=== PATIENT | female | born 1955 | race African-American/Black ===

== ENCOUNTER 2021-11-27 07:48 | Outpatient (CLI) | payer OTHER, SELFPAY ==
--- NOTE | ~2021-11-27 | MM_ITS ---
EXAMINATION: MM screening teo BI w kel HISTORY: Screening mammogram, family history of breast cancer in her sister. TECHNIQUE: Craniocaudal and mediolateral oblique 3-D tomosynthesis images were obtained and synthetic 2-D images were generated. CAD analysis was submitted and interpreted. COMPARISON: No prior mammogram is available for comparison at this institution. BREAST PARENCHYMAL COMPOSITION: There are scattered areas of fibroglandular density. FINDINGS: There is no suspicious mass, calcification, or architectural distortion to suggest malignan cy in either breast. IMPRESSION: 1. No mammographic evidence of malignancy. 2. Recommend routine screening mammography in one year. BI-RADS Category 1: Negative Reviewed, dictated and finalized at location A.
== END 2021-11-27 07:49 | disposition home or self-care (01) ==
LOC: ANHIMG 07:51
DX: Z12.31 Encounter for screening mammogram for malignant neoplasm of breast (principal)
CPT/HCPCS: 77063; 77067

== ENCOUNTER 2023-01-28 13:24 | Outpatient (CLI) | payer MEDICARE, SELFPAY ==
--- NOTE | ~2023-01-28 | MM_ITS ---
EXAMINATION: MM screening teo BI w kel HISTORY: Screening mammogram, family history of breast cancer in her sister. TECHNIQUE: Craniocaudal and mediolateral oblique 3-D tomosynthesis images were obtained and synthetic 2-D images were generated. CAD analysis was submitted and interpreted. COMPARISON: 11/27/2021 BREAST PARENCHYMAL COMPOSITION: There are scattered areas of fibroglandular density. FINDINGS: No suspicious mass, calcification, or architectural distortion are identified in either alise ast to suggest malignancy. There has been no suspicious interval change. IMPRESSION: 1. No mammographic evidence of malignancy. 2. Recommend routine screening mammography in one year. BI-RADS Category 1: Negative Reviewed, dictated and finalized at location A.
== END 2023-01-28 13:25 | disposition home or self-care (01) ==
LOC: ANHIMG 13:27
PROVIDERS: PCP Family Medicine
DX: Z12.31 Encounter for screening mammogram for malignant neoplasm of breast (principal)
CPT/HCPCS: 77063; 77067

== ENCOUNTER 2023-02-11 08:48 | Outpatient (CLI) | payer MEDICARE, SELFPAY ==
--- NOTE | ~2023-02-11 | DEXA_ITS ---
Bone Density Report Name: MANOLO SCHUMACHER Age: 67 Sex: Female Ethnicity: White Date of : 1955 Indication: postmenopausal; screening for osteoporosis; height loss; prior fracture; Referring Provider: HAMZAH AGUIRRE Study: Bone densitometry was performed. Exam Date: February 11, 2023 Accession number: [id number] Bone Density: Region BMD T-score Z-score Classification AP Spine(L1-L4) 1.195 1.3 3.1 Normal Femoral Neck (Left) 0.834 -0.1 1.4 Normal Total Hip (Left) 1.043 0.8 2.1 Normal Femoral Neck (Right) 0.781 -0.6 0.9 Normal Total Hip (Right) 1.010 0.6 1.8 Normal Total Hip Mean 1.027 0.7 2.0 Normal World Health Organization criteria for BMD impression classify patients as: Normal (T-score at or above -1.0), Osteopenia (T-score between -1.0 and -2.5), or Osteoporosis (T-score at or below -2.5). 10-year Fracture Risk: FRAX not reported because: All T-scores for Spine Total, Hip Total, Femoral Neck at or above -1.0 Clinical Information Provided by Patient: Has had a low trauma fracture Has used the following medications: Vitamin D, Calcium Patient maximum height was 68.5 Menopause Age: 50 No regular weight bearing exercise Drinks caffeinated beverages Onset of menses at age 14 Number of children 2 Impression: The patient has normal bone mass. The patient has risk factors, including: previous fracture. Discussion: BONE DENSITY IS ABOVE THE MINIMUM DESIRABLE LEVEL AT ALL SKELETAL SITES TESTED. This patient?s bone mineral density is above the minimum desirable level (T-score -1.0 or better) at all sites measured. The patient should follow a healthful lifestyle (good nutrition with adequate calcium and vitamin D, and appropriate weight-bearing exercise). Follow-Up: Consider repeating this study in 5 years or sooner if there is some new clinical indication. Reported by: CEZAR on 02/11/2023 9:26:00 AM. Reviewed, dictated and finalized at location [facility]
== END 2023-02-11 08:49 | disposition home or self-care (01) ==
PROVIDERS: PCP Family Medicine; Visit Provider Obstetrics & Gynecology Gynecology
DX: Z78.0 Asymptomatic menopausal state (principal)
CPT/HCPCS: 77080

== ENCOUNTER 2024-07-20 15:23 | Outpatient (CLI) | payer MEDICARE, SELFPAY ==
--- NOTE | ~2024-07-20 | MM_ITS ---
EXAMINATION: MM screening teo BI w kle HISTORY: Screening TECHNIQUE: Craniocaudal and mediolateral oblique 3-D tomosynthesis images were obtained and synthetic 2-D images were generated. CAD analysis was submitted and interpreted. COMPARISON: Comparison to multiple prior studies sequentially, with oldest reviewed study dated 11/27. BREAST PARENCHYMAL COMPOSITION: Not dense: There are scattered areas of fibroglandular density. FINDINGS: There is no evidence of suspicious mass, calcification, or architectural distortion to sugg est malignancy in either breast. There has been no suspicious interval change. IMPRESSION: 1. No mammographic evidence of malignancy. 2. Recommend routine screening mammography in one year. BI-RADS Category 1: Negative Reviewed, dictated and finalized at location B. REPAIRER
== END 2024-07-20 15:24 | disposition home or self-care (01) ==
LOC: ANHIMG 15:27
PROVIDERS: PCP Family Medicine; Visit Provider Obstetrics & Gynecology Gynecology
DX: Z12.31 Encounter for screening mammogram for malignant neoplasm of breast (principal)
CPT/HCPCS: 77063; 77067

== ENCOUNTER 2024-07-26 10:43 | Outpatient (CLI) | payer MEDICARE, SELFPAY ==
--- NOTE | ~2024-07-26 | XR_ITS ---
3 VIEWS LUMBAR SPINE Ordering provider: Liz Gar PA-C History: . NON TRAUMA LBP . Comparison: None. FINDINGS: VERTEBRAL BODIES:Minimal anterolisthesis at the level of L4-L5. No visible fracture or subluxation. DISK SPACES: Degenerative disc disease seen at the level of L2-L3, L3-L4 and L4-L5. SOFT TISSUES: Normal. IMPRESSION: No acute osseous abnormality lumbar spine. Anterolisthesis at the level of L4-L5. Multilevel degenerative disc disease. Reviewed, dictated and finalized at location A. L SERVICE MANAGER
== END 2024-07-26 10:44 | disposition home or self-care (01) ==
LOC: ANHIMG 10:45
PROVIDERS: PCP Family Medicine; Visit Provider Student in an Organized Health Care Education/Training Program
DX: M43.16 Spondylolisthesis, lumbar region (principal); M51.360 Other intervertebral disc degeneration, lumbar region with discogenic back pain only; M51.370 Other intervertebral disc degeneration, lumbosacral region with discogenic back pain only
CPT/HCPCS: 72100

== ENCOUNTER 2024-08-10 07:57 | Outpatient (CLI) | payer MEDICARE, SELFPAY ==
--- NOTE | 2024-08-10 13:06 | WPDPFTINT ---
PFT Procedure Performed PFT Procedure Performed Spirometry with Pre/Post Bronchodilator Plethysmography (Lung Vol) Diffusing Cap (DLCO) Flow Vol Loop PFT Interpretation This is a pulmonary function test with pre and post-bronchodilator spirometry, plethysmography and diffusing capacity. The test was performed and results interpreted in accordance with the 2019 and 2005 ATS/ERS Task Force guidelines respectively using the Global Lung Function Initiative-2012 reference equations. Patient demonstrated good effort and cooperation. Reproducibility criteria were met. The quality of the pre bronchodilator spirometry maneuver was Grade A and post bronchodilator spirometry maneuver was Grade A. Findings: Spirometry: The contour the inspiratory and expiratory flow tracing are normal. The pre bronchodilator FVC is 2.35 L, 83% predicted. The pre bronchodilator FEV1 is 1.83 L, 83% predicted. The pre bronchodilator FEV1: FVC ratio 78%. The post bronchodilator FVC is 2.47 L, representing a 5% increase. The post bronchodilator FEV1 is 1.95 L, representing a 7% increase. The post bronchodilator FEV1: FVC ratio 79%. Plethysmography: The total lung capacity is 4.17 L, 86% predicted. The functional residual capacity is 1.82 L, 59% predicted. The residual volume is 1.78 L, 85% predicted. Diffusing capacity: The diffusing capacity unadjusted for hemoglobin and carboxyhemoglobin is 19.9, 90% predicted. The diffusing capacity adjusted for alveolar volume is 4.83, 115% predicted. Impression: The spirometry is normal without evidence of an obstructive abnormality. There is no significant improvement after inhaling a single dose of albuterol. The total lung capacity and residual volume are normal with a decreased functional residual capacity. This is an abnormal but nonspecific lung volume pattern. The diffusing capacity is normal. There are no prior studies for comparison
== END 2024-08-10 07:58 | disposition home or self-care (01) ==
PROVIDERS: PCP Family Medicine; Visit Provider Student in an Organized Health Care Education/Training Program
DX: R06.00 Dyspnea, unspecified (principal)
CPT/HCPCS: 94060; 94726; 94729

== ENCOUNTER 2024-09-21 15:30 | Outpatient (RCR) | payer MEDICARE, SELFPAY ==
--- NOTE | 2024-08-24 16:36 | OPREHPOC ---
Outpatient Therapy Plan of Care This is a Multidisciplinary Plan of Care that may contain components documented by all disciplines (PT, OT, and ST.) PT Problem 1 PT Problem #1 Knowledge Deficit PT Goal 1 Goal / Goal Update *indep with HEP Target Visit 6 PT Goal 2 Goal / Goal Update *pt demonstrate correct body mechanics with simulated lifting a child from the floor Target Visit 6 PT Problem 2 PT Problem #2 Pain PT Goal 1 Goal / Goal Update * report pain rating at worst of 38% limitation in activity level Target Visit 6 PT Goal 2 Goal / Goal Update * pt report able to stand/activity with cooking a meal for 30 minutes before sitting down Target Visit 6 PT Problem 3 PT Problem #3 Impaired Flexibility PT Goal 1 Goal / Goal Update *improve flexibility of hips, to improve lumbar positioning prone knee flexion bilateral 110' Target Visit 6 PT Problem 4 PT Problem #4 Impaired Strength PT Goal 1 Goal / Goal Update * increase strength of trunk and hips, to improve support to lumbar spine pt perform 20 reps of mat and standing strengthening exercises R and L Target Visit 6
--- NOTE | 2024-08-24 16:37 | PCPTNOTE ---
pt was 15 minutes late for eval appt.
--- NOTE | 2024-08-24 16:38 | PTOPEVAL1 ---
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; can do things, but slower and have to stop due to pain; have to take sitting breaks during cooking; Reported Pain Level Pain Score 4: Self Report Additional Pain Score Comments pain range in the past week 2- 05/24; severe ache- center of low ache sometimes have pain in her legs but not feel related to her back, aches in feet and below knees , some pain lateral thighs; decrease pain: lean trunk forward with standing, tylenol PRN increase pain: standing upright; standing/walking with kitchen meal prep 15-20 min then have to sit down; once get comfortable, with back braced and supported, can sleep OK not use heat- instruct on PRN use of heating pad 10-15min; Assessment PT Clinical Summary Stephy has the diagnosis of back pain, spondylolisthesis. She reports gradual increase in pain, with decreased standing and activity tolerance with cooking meals. 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 Self assessment with Oswestry rating of 48% limitation in activity level. With the evaluation: standing trunk extension increases her pain; decreased flexibility of anterior hip/quads and piriformis bilateral, with gross trunk and hip strength of 4-/5. Skilled PT services are indicated for modalities to decrease pain, therapeutic exercises to increase flexibility and strength, to improve position of trunk/spine with education for HEP and posture/body mechanics with lifting. Plan of Care Interventions Electrical Stimulation,Hot Pack/Cold Pack,Manual Therapy,Patient/Caregiver Education,Therapeutic Activities,Therapeutic Exercise,Ultrasound,Other Other Interventions taping PT Services Indicated Yes Treatment Frequency and 1-2x/wk for 6 visits Duration These treatments will address the objective and functional deficits as defined above. The patient will be advanced safely and appropriately in order for the patient to progress towards his/her prior level of function. Additional exercises will be introduced and as well as a comprehensive home exercise program upon discharge, if needed, ?to ensure carryover of functional gains achieved in the clinic. This treatment plan has been reviewed and agreement upon by the patient.
--- NOTE | 2024-09-21 16:18 | PTOPDC ---
Assessment and note entered by Juani Dupont, PT Assessment Status Discharge ICD-10 Condition Codes (PT) Pain in low back M54.50 Other ICD-10 Condition Codes ( M43.10 spondylolisthesis PT) Onset past year Subjective Information feel like doing OK; have been doing the exercises at home and trying to be better with picking up the kids from the floor; Reported Pain Level Pain Score Self Report Additional Pain Score Comments pain range in the past week 0-3/10; increase pain standing too long and bending forward decrease pain: lean forward on counter top to take pressure off back standing/walking tolerance 5-10 minutes, then have to sit down or lean over counter Assessment PT Clinical Summary Stephy has received 6 PT sessions. Compared to the initial evaluation: pain from 2-9/ 10 to 0-3/10; self assessment Oswestry rating from 48% to % limitation in activity level; reported standing/activity tolerance from 15 minutes to 5-10 minutes; increase strength of trunk and hips with mat and standing exercises; correct lifting with bilateral UE from floor- simulate lifting child; increase flexibility of anterior hip/quads with prone knee flexion from 95' bilateral to R 110'/ L 100'; education for HEP and posture, body mechanics. The goals were partially met. Discharge PT. She is to continue with her HEP and monitor back posture and lifting. Plan of Care PT Services Indicated No
--- NOTE | 2024-09-21 16:22 | PCPTNOTE ---
pt was 20 minutes late for today's reevaluation appt--had the wrong time.
== END 2024-09-22 11:35 | disposition home or self-care (01) ==
LOC: ANHPT 15:30
PROVIDERS: PCP Family Medicine; Visit Provider Student in an Organized Health Care Education/Training Program
DX: M43.10 Spondylolisthesis, site unspecified (principal); M54.50 Low back pain, unspecified
CPT/HCPCS: 97110; 97140; 97161; 97530

== ENCOUNTER 2025-06-01 14:25 | Outpatient (CLI) | payer MEDICARE, SELFPAY ==
--- NOTE | ~2025-06-01 | XR_ITS ---
EXAMINATION: XR knee RT 3V, 06/01/2025 14:40 CDT HISTORY: M25.561 - Pain in right knee, CHRONIC COMPARISON: No comparisons available. Findings: No acute fracture or malalignment. Moderate to severe tricompartmental degenerative changes, small effusion Soft tissues unremarkable. Impression: No acute fracture or malalignment. Reviewed, dictated and finalized at location A. Impression: No acute fracture or malalignment.
--- NOTE | ~2025-06-01 | XR_ITS ---
EXAMINATION: XR knee LT 3V, 06/01/2025 14:40 CDT HISTORY: M25.561 - Pain in right knee, CHRONIC COMPARISON: No comparisons available. Findings: No acute fracture or malalignment. Moderate to severe tricompartmental degenerative changes Soft tissues unremarkable. Impression: No acute fracture or malalignment. Reviewed, dictated and finalized at location A. Impression: No acute fracture or malalignment.
--- OUTSIDE RECORDS SUMMARY | 2025-06-01 14:34 | XMS_ITS | Encounter Summary ---
Author Organization [facility] Address 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
--- OUTSIDE RECORDS SUMMARY | 2025-06-01 14:34 | XMS_ITS | Encounter Summary ---
Author Organization [facility] Address 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
--- OUTSIDE RECORDS SUMMARY | 2025-06-01 14:34 | XMS_ITS | Encounter Summary ---
Author Organization [facility] Address 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
--- OUTSIDE RECORDS SUMMARY | 2025-06-01 14:34 | XMS_ITS | Clinical Summary ---
Author Organization [facility] Address [address] [place] [address] Phone Care Team Providers Care Railroad Crane Operator Name Role Phone Doc Rodriguez MD Primary Care Provider [phone] Allergies Active Allergy Reactions Criticality Noted Date Comments Sulfa (Sulfonamide Antibiotics) Unknown 02/13 Medications CLONIDINE HCL (CLONIDINE ORAL) Take by mouth. Active apixaban (ELIQUIS ORAL) Activ e verapamiL (CALAN) 120 mg tablet Take 120 mg by mouth daily. Active flecainide (TAMBOCOR) 50 mg Tablet Take 50 mg by mouth daily. 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 WORKER Gender Identity Not on file Sexual Orientation Not on file Occupation Industry Job Start Date Job End Date Not on file Not on file Not on file Not on file Last Filed Vital Signs Vital Sign Reading Time Taken Comments Blood Pressure 122/78 04/26/2020 12:39 PM CDT Pulse 64 04/14/2017 6:00 PM CDT Temperature 36.1 C (97 F) 04/14/2017 4:20 PM CDT Respiratory Rate 18 04/14/2017 4:20 PM CDT Oxygen Saturation 97% 04/14/2017 6:00 PM CDT Inhaled Oxygen Concentration - - Weight 135.2 kg (298 lb) 04/26/2020 12:39 PM CDT Height 172.7 cm (5' 8) 04/26/2020 12:39 PM CDT Body Mass Index 45.31 04/26/2020 12:39 PM CDT Plan of Treatment Health Maintenance Due Date Last Done Comments DTAP/TDAP/TD VACCINES (1 - Tdap) 1976 FIT-DNA Q 3 years 2002 Flex Sig/CT Colonography Q 5 years 2002 PNEUMOCOCCAL VACCINE 50+ YEA RS (1 of 1 - PCV) 12/23/2007 ZOSTER VACCINE (1 of 2) 12/23/2007 OSTEOPOROSIS SCREENING 07/02/2013 07/02/2011 FIT/FOBT Q 1 year 03/09/2015 03/09/2014 COLORECTAL SCREENING 03/24/2017 03/24/2012, 03/24/2012, 08/18/2006 Colorectal Cancer Screening 03/24/2017 BREAST CANCER SCREENING 11/05/2021 11/05/19 21, 08/19/2019, 07/20/2018, Additional history exists INFLUENZA VACCINE (#1) 2025 07/03/2020 RSV VACCINE (60+ or ) (1 - 1-dose 75+ series) 2032 Procedures Procedure Name Priority Date/Time Associated Diagnosis Comments MAMMO 3D DERIK SCREEN BILAT W OR WO CAD Routine 11/05/2020 7:46 AM CONDITIONING ROOM WORKER Breast cancer screening by mammogram POC OCCULT BLOOD, IMMUNO, QUAL, STOOL Routine 03/09/2014 2:51 PM CDT Screening for malignant neoplasm of the rectum ENDOSCOPY, COLON, SCREENING Routine 08/18/2006 from Last 3 Months or Most Recently Relevant to Health Maintenance Results * MAMMO SCRN BILAT 3D DERIK W OR WO CAD (11/05/2020 7:46 AM CONDITIONING ROOM WORKER) Anatomical Region Laterality Modality Breast Bilateral Mammography 11/05/2020 7:47 AM CONDITIONING ROOM WORKER Impressions 11/05/2020 12:32 PM CONDITIONING ROOM WORKER IMPRESSION: 1. No concerning findings. OVERALL FINAL ASSESSMENT: BI-RADS CATEGORY 1 - Negative. RECOMMENDATIONS: 1. Recommend annual mammography. Narrative 11/05/2020 12:32 PM CONDITIONING ROOM WORKER BILATERAL SCREENING DIGITAL MAMMOGRAM WITH 3D TOMOSYNTHESIS AND CAD DATE: 11/05/2020 7:46 AM DICTATION LOCATION: [facility] HISTORY: Routine yearly screening exam. TECHNIQUE: Low-dose full-field digital breast tomosynthesis examination was performed of both breasts with 2D and 3D acquisitions. CAD was utilized. COMPARISON: Studies dating back to 06/08/2015. BREAST COMPOSITION: Scattered fibroglandular densities. FINDINGS: No concerning dominant masses, suspicious calcifications, parenchymal asymmetries or areas of architectural distortion are identified in either breast. Procedure Note Gregor Macdonald MD - 11/05/2020 BILATERAL SCREENING DIGITAL MAMMOGRAM WITH 3D TOMOSYNTHESIS AND CAD DATE: 11/05/2020 7:46 AM DICTATION LOCATION: [facility] HISTORY: Routine yearly screening exam. TECHNIQUE: Low-dose full-field digital breast tomosynthesis examination was performed of both breasts with 2D and 3D acquisitions. CAD was utilized. COMPARISON: Studies dating back to 06/08/2015. BREAST COMPOSITION: Scattered fibroglandular densities. FINDINGS: No concerning dominant masses, suspicious calcifications, parenchymal asymmetries or areas of architectural distortion are identified in either breast. IMPRESSION: 1. No concerning findings. OVERALL FINAL ASSESSMENT: BI-RADS CATEGORY 1 - Negative. RECOMMENDATIONS: 1. Recommend annual mammography. Nancy Yun DO MAMMO ORDERABLES Final Result * POC OCCULT BLOOD, IMMUNO, QUAL, STOOL (03/09/2014 2:51 PM CDT) OCCULT BLOOD, IMMUNOASSAY STOOL1 POC Negative [facility] OCCULT BLOOD, IMMUNOASSAY STOOL2 POC [facility] OCCULT BLOOD, IMMUNOASSAY STOOL3 POC [facility] Stool specimen (specimen) 03/09/2014 2:51 PM CDT Netta Currie MD POINT OF CARE TESTING Final Result [facility] * ENDOSCOPY, COLON, SCREENING (08/18/2006) us Doc Baez MD GI PROCEDURE ORDERABLES Edited [facility] from Last 3 Months or Most Recently Relevant to Health Maintenance Insurance [facility] [employer] PPO [id number] Advance Directives For more information, please contact: [phone] * Full Code (Latest Code Status on File) Date Activated Date Inactivated Comments 03/24/2012 8:22 AM 03/24/2012 12:06 PM Care Teams Railroad Crane Operator Relationship Specialty Start Date End Date Doc Rodriguez MD PCP - General Family Practice 02/16/17
--- OUTSIDE RECORDS SUMMARY | 2025-06-01 14:34 | XMS_ITS | Encounter Summary ---
Author Organization [facility] Address 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
--- OUTSIDE RECORDS SUMMARY | 2025-06-01 14:34 | XMS_ITS | Encounter Summary ---
Author Organization [facility] Address [address] [place] [address] Care Team Providers Care Brim Cutter Name Role Phone Doc Rodriguez MD Primary Care Provider [phone] Encounter Details Date Type Department Care Team (Late st Contact Info) Description 02/11/2000 [facility]patient [facility] Aditya Vera, DO [address] [place] [address] Social History Tobacco Use Types Packs/Day Years Used Date Smoking Tobacco: Never Assessed Comments Unknown Sex and Gender Information Value Date Recorded Sex Assigned at Not on file Legal Sex Female 5:16 AM GENERAL ACTIVITIES THERAPIST Gender Identity Not on file Sexual Orientation Not on file documented as of this encounter Plan of Treatment Not on file documented as of this encounter Visit Diagnoses Not on filedocumented in this encounter Care Teams Brim Cutter Relationship Specialty Start Date End Date Doc Rodriguez MD PCP - General Family Practice 02/16/17 documented as of this encounter
--- OUTSIDE RECORDS SUMMARY | 2025-06-01 14:34 | XMS_ITS | Encounter Summary ---
Author Organization [employer] Address [address] [place] [address] Care Team Providers Care Teacher Cclc Name Role Phone Doc Rodriguez MD Primary Care Provider [phone] Encounter Details Date Type Department Care Team (Late st Contact Info) Description 01/24/2000 Outpatient Historical [facility] Aditya Vera, DO [address] [place] [address] Social History Tobacco Use Types Packs/Day Years Used Date Smoking Tobacco: Never Assessed Comments Unknown Sex and Gender Information Value Date Recorded Sex Assigned at Not on file Legal Sex Female 5:16 AM REFERENCE SERVICES HEAD Gender Identity Not on file Sexual Orientation Not on file documented as of this encounter Plan of Treatment Not on file documented as of this encounter Visit Diagnoses Not on filedocumented in this encounter Care Teams Teacher Cclc Relationship Specialty Start Date End Date Doc Rodriguez MD PCP - General Family Practice 02/16/17 documented as of this encounter
--- OUTSIDE RECORDS SUMMARY | 2025-06-01 14:34 | XMS_ITS | Encounter Summary ---
Author Organization [employer] Address [address] [place] [address] Care Team Providers Care Line Assembly Utility Worker Name Role Phone Doc Rodriguez MD Primary Care Provider [phone] Encounter Details Date Type Department Care Team (Late st Contact Info) Description 08/01/1999 Outpatient Historical [facility] Aditya Vera, DO [address] [place] [address] Social History Tobacco Use Types Packs/Day Years Used Date Smoking Tobacco: Never Assessed Comments Unknown Sex and Gender Information Value Date Recorded Sex Assigned at Not on file Legal Sex Female 5:16 AM PORTFOLIO ASSISTANT Gender Identity Not on file Sexual Orientation Not on file documented as of this encounter Plan of Treatment Not on file documented as of this encounter Visit Diagnoses Not on filedocumented in this encounter Care Teams Line Assembly Utility Worker Relationship Specialty Start Date End Date Doc Rodriguez MD PCP - General Family Practice 02/16/17 documented as of this encounter
--- OUTSIDE RECORDS SUMMARY | 2025-06-01 14:35 | XMS_ITS | Encounter Summary ---
Author Organization [facility] Address [address] [place] [address] Care Team Providers Care Sleeve Setter Name Role Phone Doc Rodriguez MD Primary Care Provider [phone] Encounter Details Date Type Department Care Team (Latest Contact Info) Description 08/25/2005 Outpatient Historical HIS [facility] DM Currie, Netta Gramajo MD [address] [address] SCREENING MAMM-MAILG NEOPL NEC (Primary Dx) Social History Tobacco Use Types Packs/Day Years Used Date Smoking Tobacco: Never Assessed Comments Unknown Sex and Gender Information Value Date Recorded Sex Assigned at Not on file Legal Sex Female 5:16 AM SCREEN CLEANER Gender Identity Not on file Sexual Orientation Not on file documented as of this encounter Plan of Treatment Not on file documented as of this encounter Visit Diagnoses Diagnosis Other screening mammogram- Primary documented in this encounter Care Teams Sleeve Setter Relationship Specialty Start Date End Date Doc Rodriguez MD PCP - General Family Practice 02/16/17 documented as of this encounter
--- OUTSIDE RECORDS SUMMARY | 2025-06-01 14:35 | XMS_ITS | Encounter Summary ---
Author Organization [employer] Address [address] [place] [address] Care Team Providers Care Software Test Engineer Name Role Phone Doc Rodriguez MD Primary Care Provider [phone] Encounter Details Date Type Department Care Team (Late st Contact Info) Description 01/03/2003 Outpatient Historical Division of Neurology [address] [address] Jatinder Edwards MD [address] [place] [address] Social History Tobacco Use Types Packs/Day Years Used Date Smoking Tobacco: Never Assessed Comments Unknown Sex and Gender Information Value Date Recorded Sex Assigned at Not on file Legal Sex Female 5:16 AM DOOR PERSON Gender Identity Not on file Sexual Orientation Not on file documented as of this encounter Plan of Treatment Not on file documented as of this encounter Visit Diagnoses Not on filedocumented in this encounter Care Teams Software Test Engineer Relationship Specialty Start Date End Date Doc Rodriguez MD PCP - General Family Practice 02/16/17 documented as of this encounter
--- OUTSIDE RECORDS SUMMARY | 2025-06-01 14:35 | XMS_ITS | Encounter Summary ---
Author Organization [facility] Address [address] [place] [address] Care Team Providers Care Vegetable Tester Name Role Phone Doc Rodriguez MD Primary Care Provider [phone] Encounter Details Date Type Department Care Team (Latest Contact Info) Description 06/04/2004 Outpatient Historical HIS [facility] DM Currie, Netta Gramajo MD [address] [address] SCREENING MAMM-MAILG NEOPL-OTHER (Primary Dx) Social History Tobacco Use Types Packs/Day Years Used Date Smoking Tobacco: Never Assessed Comments Unknown Sex and Gender Information Value Date Recorded Sex Assigned at Not on file Legal Sex Female 5:16 AM BUMPER OPERATOR Gender Identity Not on file Sexual Orientation Not on file documented as of this encounter Plan of Treatment Not on file documented as of this encounter Visit Diagnoses Diagnosis Other screening mammogram- Primary documented in this encounter Care Teams Vegetable Tester Relationship Specialty Start Date End Date Doc Rodriguez MD PCP - General Family Practice 02/16/17 documented as of this encounter
--- OUTSIDE RECORDS SUMMARY | 2025-06-01 14:35 | XMS_ITS | Clinical Summary ---
Author Organization [facility] Address [address] [place] [address] Phone Care Team Providers Care Pick Pulling Machine Tender Name Role Phone Julia Solano MD Primary Care Provider [phone] Allergies Active Allergy Reactions Criticality Noted Date Comments Sulfa (Sulfonamide Antibiotics) Swelling,Unknown Medium 03/11/2012 Medications Eliquis 5 mg tablet Take 1 tablet (5 mg total) by mouth 2 (two) times a day Active cloNIDine (CATAPRES) 0.1 mg tablet Take 1 tablet (0.1 mg total) by mouth 2 (two) times a day 06/24/2017 Active flecainide (TAMBOCOR) 100 mg tablet Take 1 tablet (100 mg total) by mouth 2 (two) times a day 06/24/2017 Active flecainide (TAMBOCOR) 50 mg tablet Take 1 tablet (50 mg total) by mouth 2 (two) times a day 02/14/2019 Active flecainide (TAMBOCOR) 50 mg tablet Take 1 tablet (50 mg total) by mouth 2 (two) times a day Active losartan (COZAAR) 100 mg tablet Take 1 tablet (100 mg total) by mouth daily 06/24/[address] (PROTONIX) 40 mg EC tablet Take 1 tablet (40 mg total) by mouth daily 09/27/2023 Active potassium chloride ER 10 mEq CR tablet Take 1 tablet/capsu le (10 mEq total) by mouth 2 (two) times a day 06/24/2017 Active spironolactone (ALDACTONE) 25 mg tablet Take 1 tablet (25 mg total) by mouth daily 08/16/2023 Active verapamiL (CALAN) 120 mg tablet Take 1 tablet (120 mg total) by mouth 2 (two) times a day 06/24/2017 Active terazosin (HYTRIN) 5 mg capsule Take 1 capsule (5 mg total) by mouth 2 (two) times a day Active Active Problems Problem Noted Date Diagnosed Date Gastroesophageal reflux dise ase with esophagitis without hemorrhage 11/04/2023 Iron deficiency anemia 11/04/2023 PUD (peptic ulcer disease) 11/04/2023 Paroxysmal atrial fibrillation 06/24/2017 Snoring 06/24/2017 Supraventricular tachycardia 06/20/2017 Overview (11/04/2023): Documented narrow complex short RP Essential (primary) hypertension 06/10/2017 Heart disease 06/10/2017 Hyperlipidemia 06/10/2017 Obesity 06/10/2017 Other specified disorders of arteries and arteri oles 06/10/2017 Overview (11/04/2023): Normal coronary arteries,normal EF at 65% Social History Tobacco Use Types Packs/Day Years Used Date Smoking Tobacco: Never Assessed Comments Unknown Sex and Gender Information Value Date Recorded Sex Assigned at Not on file Legal Sex Female 2:37 PM CDT Gender Identity Not on file Sexual Orientation Not on file Obstetrics History Last Filed Vital Signs Vital Sign Reading Time Taken Comments Blood Pressure 100/70 11/04/2023 8:08 AM FUR FINISHER SEAMSTRESS Pulse 81 11/04/2023 8:08 AM FUR FINISHER SEAMSTRESS Temperature 36.8 C (98.3 F) 11/04/2023 8:08 AM FUR FINISHER SEAMSTRESS Respiratory Rate 20 11/04/2023 8:08 AM FUR FINISHER SEAMSTRESS Oxygen Saturation 97% 11/04/2023 8:08 AM FUR FINISHER SEAMSTRESS Inhaled Oxygen Concentration - - Weight 133.4 kg (294 lb) 11/04/2023 8:08 AM FUR FINISHER SEAMSTRESS Height 170.2 cm (5' 7) 11/04/2023 8:08 AM FUR FINISHER SEAMSTRESS Body Mass Index 46.05 11/04/2023 8:08 AM FUR FINISHER SEAMSTRESS Plan of Treatment Health Maintenance Due Date Last Done Comments Colon Cancer Screening-Colonoscopy 1955 Depression Screening 1955 Fall Risk Assessment 1955 Hepatitis C Screening 1955 Osteoporosis Screening-Bone Density Scan 1955 DTaP/Tdap/Td Vaccine (1 - Tdap) 1968 Hepatitis B Screening 12/23/1975 Pneumococcal vaccine 65+ (1 of 1 - PCV) 12/23/2007 Zoster Vaccine (1 of 2) 12/23/2007 Breast Cancer Screening-Mammogram 11/05/2021 11/05/2020, 11/05/2020, 08/19/2019, Additional history exists Well Visit 65+ 2022 Covid-19 Vaccine (5 - 2024-2 6 season) 2025 07/07/2022, 08/01/2021, 12/12/2020, Additional history exists Influenza Vaccine (#1) 2025 , 08/01/2021, 07/03/2020 Insurance MEDICARE [facility] Address: [facility] [address] [place] [address] [facility] Care Teams Pick Pulling Machine Tender Relationship Specialty Start Date End Date Julia Solano MD PCP - General Family Medicine 10/31/23
--- OUTSIDE RECORDS SUMMARY | 2025-06-01 14:35 | XMS_ITS | Encounter Summary ---
Author Organization [employer] Address [address] [place] [address] Care Team Providers Care Relief Driller Name Role Phone Doc Rodriguez MD Primary Care Provider [phone] Encounter Details Date Type Department Care Team (Late st Contact Info) Description 11/10/2005 Outpatient Historical [facility] Netta Currie MD [address] [place] [address] UTERINE LEIOMYOMA NOS (Primary Dx) Social History Tobacco Use Types Packs/Day Years Used Date Smoking Tobacco: Never Assessed Comments Unknown Sex and Gender Information Value Date Recorded Sex Assigned at Not on file Legal Sex Female 5:16 AM AVIATION BOATSWAIN'S MATE Gender Identity Not on file Sexual Orientation Not on file documented as of this encounter Plan of Treatment Not on file documented as of this encounter Visit Diagnoses Diagnosis Leiomyoma of uterus, unspecified- Primary documented in this encounter Care Teams Relief Driller Relationship Specialty Start Date End Date Doc Rodriguez MD PCP - General Family Practice 02/16/17 documented as of this encounter
--- OUTSIDE RECORDS SUMMARY | 2025-06-01 14:35 | XMS_ITS | Encounter Summary ---
Author Organization [employer] Address [address] [place] [address] Care Team Providers Care Analog Ic Design Architect Name Role Phone Doc Rodriguez MD Primary Care Provider [phone] Encounter Details Date Type Department Care Team (Late st Contact Info) Description 09/10/2000 Outpatient Historical [facility] Aditya Vera, DO [address] [place] [address] Social History Tobacco Use Types Packs/Day Years Used Date Smoking Tobacco: Never Assessed Comments Unknown Sex and Gender Information Value Date Recorded Sex Assigned at Not on file Legal Sex Female 5:16 AM WIRE COATING OPERATOR METAL Gender Identity Not on file Sexual Orientation Not on file documented as of this encounter Plan of Treatment Not on file documented as of this encounter Visit Diagnoses Not on filedocumented in this encounter Care Teams Analog Ic Design Architect Relationship Specialty Start Date End Date Doc Rodriguez MD PCP - General Family Practice 02/16/17 documented as of this encounter
--- OUTSIDE RECORDS SUMMARY | 2025-06-01 14:35 | XMS_ITS | Clinical Summary ---
Author Organization [facility] Address [address] [place] [address] Care Team Providers Care Education Counselor Name Role Phone Doc Rodriguez MD Primary Care Provider [phone] Source Comments [facility],non-owned Affiliates and Associated Physician Practices is amultiple site organization consisting of ambulatory clinics and hospital sitesin [place], [place], [place] and [place]. This disclosure is being madepursuant to the Care Everywhere program and may not contain all information available regarding this patient. Last updated 18.[facility] Allergies Active Allergy Reactions Criticality Noted Date Comments Sulfa Drugs Swelling Low 06/24/2017 Medications * Be aware that medications may not be up to date on this document. Alwaysverify current medications with the patient. potassium chloride (KLOR-CON M) 10 MEQ tablet Take 10 mEq by mouth BID. 06/24/2017 Active verapamil (ISOPTIN) 120 MG tablet Take 120 mg by mouth BID. 06/24/2017 Active cloNIDine (CATAPRES) 0.1 MG tablet Take 0.1 mg by mouth BID. 06/24/2017 Active losartan (COZAAR) 100 MG tablet Take 100 mg by mouth DAILY. 06/24/2017 Active flecainide (TAMBOCOR) 100 MG tablet Take 100 mg by mouth BID. 60 tablet 11 06/24/2017 Active aspirin (ASPIRIN) 81 MG tablet Take 81 mg by mouth DAILY. 06/24/2017 Active apixaban (ELIQUIS) 5 MG tabletIndications :Paroxysmal atrial fibrillation (HCC) Take 1 tablet by mouth 2 times daily 60 tablet 11 07/24/2018 Active Active Problems Problem Noted Date Diagnosed Date Snoring 06/24/2017 Paroxysmal atrial fibrillation 06/24/2017 Supraventricular tachycardia 06/20/2017 Overview (12/14/2017): Documented narrow complex short RP Other specified disorders of arteries and arteri oles 06/10/2017 Overview (12/14/2017): Normal coronary arteries,normal EF at 65% Obesity 06/10/2017 Essential (primary) hypertension 06/10/2017 Heart disease 06/10/2017 Hyperlipidemia 06/10/2017 Social History Tobacco Use Types Packs/Day Years Used Date Smoking Tobacco: Never Smokeless Tobacco: Never Alcohol Use Standard Drinks/Week Comments No 0 (1 standard drink = 0.6 oz pur e alcohol) Comments Unknown Sex and Gender Information Value Date Recorded Sex Assigned at Not on file Legal Sex Female 5:20 PM LIGHT RAIL OPERATOR Gender Identity Not on file Sexual Orientation Not on file Last Filed Vital Signs Vital Sign Reading Time Taken Comments Blood Pressure 132/88 06/24/2017 11:19 AM CDT Pulse 90 06/24/2017 11:19 AM CDT Temperature - - Respiratory Rate - - Oxygen Saturation 97% 06/24/2017 11:19 AM CDT Inhaled Oxygen Concentration - - Weight 122.5 kg (270 lb) 06/24/2017 11:19 AM CDT Height 172.7 cm (5' 8) 06/24/2017 11:19 AM CDT Body Mass Index 41.05 06/24/2017 11:19 AM CDT Plan of Treatment Health Maintenance Due Date Last Done Comments BONE DENSITY TESTING 1955 COLOGUARD (AGES 45-75) - COL ON CA SCREENING 1957 COLON MONITORING 1957 COLONOSCOPY - COLON CA SCREENING 1957 CT COLONOGRAPHY - COLON CA SCREENING 1955 Colorectal Cancer Screening 1957 FIT - COLON CA SCREENING 1957 FLEX SIG - COLON CA SCREENING 1957 LIPID TESTING 1957 MAMMOGRAM 1957 HEPATITIS C SCREENING 12/18/1975 DTAP/TDAP/TD VACCINES (1 - Tdap) 1976 PNEUMOCOCCAL VACCINE 50+ (1 of 1 - PCV) 12/23/2007 ZOSTER VACCINE (1 of 2) 12/23/2007 Respiratory Syncytial Virus (RSV) Vaccine Pt: or over 60 yrs (1 - Risk 60-74 years 1-dose series) 2017 DEPRESSION SCREENING 09/14/2024 COVID-19 VACCINE ( - 2023-2 5 season) 2025 INFLUENZA VACCINE (#1) 2025 HEPATITIS B VACCINE Aged Out No longe r eligible based on patient's age to complete this topic HIB VACCINE Aged Out No longer eligi ble based on patient's age to complete this topic HPV VACCINE Aged Out No longer eligi ble based on patient's age to complete this topic MENINGOCOCCAL (Group B) VACC INE SHARED DECISION-MAKING Aged Out No longer eligibl e based on patient's age to complete this topic MENINGOCOCCAL GROUPS A/C/Y/W VACCINE Aged Out No longer eligible b ased on patient's age to complete this topic Care Teams Education Counselor Relationship Specialty Start Date End Date Doc Rodriguez MD [address] [place] [address] PCP - General 06/09/17
--- OUTSIDE RECORDS SUMMARY | 2025-06-01 14:35 | XMS_ITS | Encounter Summary ---
Author Organization [facility] Address [address] [place] [address] Care Team Providers Care Music Writer Name Role Phone Doc Rodriguez MD Primary Care Provider [phone] Encounter Details Date Type Department Care Team (Late st Contact Info) Description 02/02/2009 Outpatient Historical HIS [facility] DM Sotelo, [place] [address] [place] [address] Netta Pinzon MD [address] [place] [address] Other Screening Mammogram Social History Tobacco Use Types Packs/Day Years Used Date Smoking Tobacco: Never Assessed Comments Unknown Sex and Gender Information Value Date Recorded Sex Assigned at Not on file Legal Sex Female 5:16 AM NEEDLE LOOM WEAVER Gender Identity Not on file Sexual Orientation Not on file documented as of this encounter Plan of Treatment Not on file documented as of this encounter Procedures Procedure Name Priority Date/Time Associated Diagnosis Comments MAMMO SCREEN BILAT W OR WO CAD Routine 02/02/2009 8:43 AM CDT documented in this encounter Results * MAMMO DIGITAL SCREEN BILAT (02/02/2009 8:43 AM CDT) Anatomical Region Laterality Modality Breast Bilateral Other 02/02/2009 8:43 AM CDT Narrative 02/06/2009 6:45 AM CDT [address] [address] Admit Date: 02/02/2009 MANOLO LAUREN Sex: F Admit Prov: NETTA PINZON Date: 1955 Primary Care Prov[facility] [id number] DOTTIE N: [id number] [facility] Ordering Prov: NETTA PINZON [employer] Accession Number: [id number] Interpretation BILATERAL DIGITAL MAMMOGRAM WITH COMPUTER-ASSISTED DIAGNOSIS The breast parenchyma demonstrates fatty involution. There is no evidence of a dominant mass, malignant type calcification or other radiographic manifestation of malignancy. No change since 05/18. The CAD system was utilized. IMPRESSION No radiographic evidence of malignancy. Assessment BIRADS: 1-Negative Recommendation: Normal interval follow-up Dictated by: MAHI BECERRA Electronically signed by: MAHI BECERRA 02/06/2009 06:45 Transcribed: 02/06/2009 06:45 CO Procedure Note Mahi Becerra MD - 02/06/[address] [address] Admit Date: 02/02/2009 MANOLO LAUREN Sex: F Admit Prov: NETTA PINZON Date: 1955 Primary Care Prov: GARY SOTELO [facility] [id number] DOTTIE N: [id number] Room: [facility] Ordering Prov: ONLANBREANA NETTA L Interpretation BILATERAL DIGITAL MAMMOGRAM WITH COMPUTER-ASSISTED DIAGNOSIS The breast parenchyma demonstrates fatty involution. There is noevidence of a dominant mass, malignant type calcification or otherradiographic manifestation of malignancy. No change since 05/18. The CAD system was utilized. IMPRESSION No radiographic evidence of malignancy. Assessment BIRADS: 1-Negative Recommendation: Normal interval follow-up Dictated by: MAHI BECERRA Electronically signed by: MAHI BECERRA 02/06/2009 06:45 Transcribed: 02/06/2009 06:45 CO us Netta Pinzon MD MAMMO ORDERABLES Final Resul t documented in this encounter Visit Diagnoses Diagnosis Other screening mammogram documented in this encounter Care Teams Music Writer Relationship Specialty Start Date End Date Doc Rodriguez MD PCP - General Family Practice 02/16/17 documented as of this encounter
--- OUTSIDE RECORDS SUMMARY | 2025-06-01 14:35 | XMS_ITS | Encounter Summary ---
Author Organization [facility] Address [address] [place] [address] Care Team Providers Care Science Tutor Name Role Phone Doc Rodriguez MD Primary Care Provider [phone] Encounter Details Date Type Department Care Team (Latest Contact Info) Description 11/08/2007 Outpatient Historical HIS [facility] DM Pinzon, Katelyn Gramajo MD [id number] [place] [address] Other Screening Mammogram Social History Tobacco Use Types Packs/Day Years Used Date Smoking Tobacco: Never Assessed Comments Unknown Sex and Gender Information Value Date Recorded Sex Assigned at Not on file Legal Sex Female 5:16 AM STERILE INSTRUMENT TECHNICIAN Gender Identity Not on file Sexual Orientation Not on file documented as of this encounter Plan of Treatment Not on file documented as of this encounter Procedures Procedure Name Priority Date/Time Associated Diagnosis Comments MAMMO SCREEN BILAT W OR WO CAD Timed Study 11/08/2007 2:57 PM STERILE INSTRUMENT TECHNICIAN documented in this encounter Results * MAMMO DIGITAL SCREEN BILAT (11/08/2007 2:57 PM STERILE INSTRUMENT TECHNICIAN) Anatomical Region Laterality Modality Breast Bilateral Other 11/08/2007 2:57 PM STERILE INSTRUMENT TECHNICIAN Narrative 11/09/2007 8:42 AM STERILE INSTRUMENT TECHNICIAN [facility] [address] [id number] Admit Date: 11/08/2007 MANOLO LAUREN Sex: F Admit Prov: KATELYN PINZON Date: 1955 Primary [facility] [id number] DOTTIE N: [id number] Room: [facility] Ordering Prov: KATELYN PINZON Accession Number: [id number] Interpretation DIGITAL BILATERAL MAMMOGRAM WITH COMPUTER ASSISTED DIAGNOSIS FINDINGS There is a moderate amount of residual fibroglandular tissue. There is no evidence of mass, architectural distortion or suspicious microcalcifications. No change since 08/18. The films were reviewed with CAD. IMPRESSION Normal bilateral mammogram. No evidence of malignancy. ACR ACCREDITED Assessment BIRADS: 1-Negative Recommendation: Normal interval follow-up Dictated by: YUSRA LUCIO Electronically signed by: YUSRA LUCIO 11/09/2007 08:42 Transcribed: 11/09/2007 08:42 CCM Procedure Note Yusra Lucio - 11/11/2007 [facility] [address] [place], [place] [address] Admit Date: 11/08/2007 MANOLO LAUREN Sex: F Admit Prov: KATELYN PINZON Date: 1955 Primary Care Prov: GARY SANCHEZ [facility] [id number] DOTTIE N: [id number] Room: [facility] Ordering Prov: KATELYN PINZON Interpretation DIGITAL BILATERAL MAMMOGRAM WITH COMPUTER ASSISTED DIAGNOSIS FINDINGS There is a moderate amount of residual fibroglandular tissue. Thereis no evidence of mass, architectural distortion or suspicious microcalcifications. No change since 08/18. The films were reviewed with CAD. IMPRESSION Normal bilateral mammogram. No evidence of malignancy. ACR ACCREDITED Assessment BIRADS: 1-Negative Recommendation: Normal interval follow-up Dictated by: YUSRA LUCIO Electronically signed by: YUSRA LUCIO 11/09/2007 08:42 Transcribed: 11/09/2007 08:42 CCM us Katelyn Pinzon MD MAMMO ORDERABLES Final Resul t documented in this encounter Visit Diagnoses Diagnosis Other screening mammogram documented in this encounter Care Teams Science Tutor Relationship Specialty Start Date End Date Doc Rodriguez MD PCP - General Family Practice 02/16/17 documented as of this encounter
--- OUTSIDE RECORDS SUMMARY | 2025-06-01 14:35 | XMS_ITS | Encounter Summary ---
Author Organization [facility] Address [address] [place] [address] Care Team Providers Care Latex Thread Machine Operator Name Role Phone Doc Rodriguez MD Primary Care Provider [phone] Encounter Details Date Type Department Care Team (Latest Contact Info) Description 10/29/2006 Outpatient Historical HIS [facility] DM Currie, Netta Gramajo MD [address] [address] Other Screening Mammogram (Primary Dx) Social History Tobacco Use Types Packs/Day Years Used Date Smoking Tobacco: Never Assessed Comments Unknown Sex and Gender Information Value Date Recorded Sex Assigned at Not on file Legal Sex Female 5:16 AM SENIOR ANALYST MARKET INTELLIGENCE Gender Identity Not on file Sexual Orientation Not on file documented as of this encounter Plan of Treatment Not on file documented as of this encounter Visit Diagnoses Diagnosis Other screening mammogram- Primary documented in this encounter Care Teams Latex Thread Machine Operator Relationship Specialty Start Date End Date Doc Rodriguez MD PCP - General Family Practice 02/16/17 documented as of this encounter
== END 2025-06-01 14:26 | disposition home or self-care (01) ==
PROVIDERS: PCP Family Medicine; Visit Provider Student in an Organized Health Care Education/Training Program
DX: M25.561 Pain in right knee (principal); M25.562 Pain in left knee
CPT/HCPCS: 73562

== ENCOUNTER 2025-09-12 13:55 | Outpatient (CLI) | payer MEDICARE, SELFPAY ==
--- NOTE | ~2025-09-12 | MM_ITS ---
EXAMINATION: MM screening teo BI w kel HISTORY: Screening TECHNIQUE: Craniocaudal and mediolateral oblique 3-D tomosynthesis images were obtained and synthetic 2-D images were generated. CAD analysis was submitted and interpreted. COMPARISON: 2023, 2022, and 2021 BREAST PARENCHYMAL COMPOSITION: There are scattered areas of fibroglandular tissue. FINDINGS: There is a focal asymmetry seen anteriorly, projecting over the retroareolar region on the left MLO view. There are no suspicious calcifications. No unexplained architectural distortion is seen. There are no skin or nipple abnormalities identified. There is no adenopathy seen on the images submitted. IMPRESSION: Asymmetry for which additional imaging is recommended. BI-RADS 0 - Incomplete - needs additional imaging evaluation Reviewed, dictated and finalized at location C. CAR DRIVER
--- OUTSIDE RECORDS SUMMARY | 2025-09-12 14:13 | XMS_ITS | Encounter Summary ---
Author Organization [facility] Address [address] [place] [address] Care Team Providers Care Record Systems Analyst Name Role Phone Doc Rodriguez MD Primary Care Provider [phone] Encounter Details Date Type Department Care Team (Latest Contact Info) Description 08/25/2005 Outpatient Historical HIS [facility] Netta Terrell MD [address] [place] [address] SCREENING MAMM-MAILG NEOPL NEC (Primary Dx) Social History Tobacco Use Types Packs/Day Years Used Date Smoking Tobacco: Never Assessed Comments Unknown Sex and Gender Information Value Date Recorded Sex Assigned at Not on file Legal Sex Female 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
--- OUTSIDE RECORDS SUMMARY | 2025-09-12 14:13 | XMS_ITS | Clinical Summary ---
Author Organization [facility] Address [address] [place] [address] Phone Care Team Providers Care Radio Repairer Domestic Name Role Phone Doc Rodriguez MD Primary Care Provider [phone] Allergies Active Allergy Reactions Criticality Noted Date [...] on file Legal Sex Female 5:16 AM FLAT SURFACER Gender Identity Not on file Sexual Orientation [...] Cancer Screening 03/24/2017 BREAST CANCER SCREENING 11/05/2021 11/05/19, 08/19/2019, 07/20/2018, Additional history exists INFLUENZA VACCINE (#1) 2025 07/03/2020 RSV VACCINE (60+ or ) (1 - 1-dose 75+ series) 2032 Procedures Procedure Name Priority Date/Time Associated Diagnosis Comments MAMMO 3D DERIK SCREEN BILAT W OR WO CAD Routine 11/05/2020 7:46 AM FLAT SURFACER Breast cancer screening by mammogram POC OCCULT BLOOD, IMMUNO, QUAL, STOOL Routine 03/09/2014 2:51 PM CDT Screening for malignant neoplasm of the rectum ENDOSCOPY, COLON, SCREENING Routine 08/18/2006 from Last 3 Months or Most Recently Relevant to Health Maintenance Results * MAMMO SCRN BILAT 3D DERIK W OR WO CAD (11/05/2020 7:46 AM FLAT SURFACER) Anatomical Region Laterality Modality Breast Bilateral Mammography 11/05/2020 7:47 AM FLAT SURFACER Impressions 11/05/2020 12:32 PM FLAT SURFACER IMPRESSION: 1. No concerning findings. OVERALL FINAL ASSESSMENT: BI-RADS CATEGORY 1 - Negative. RECOMMENDATIONS: 1. Recommend annual mammography. Narrative 11/05/2020 12:32 PM FLAT SURFACER BILATERAL SCREENING DIGITAL MAMMOGRAM WITH 3D TOMOSYNTHESIS AND CAD DATE: 11/05/2020 7:46 AM DICTATION LOCATION: [facility] HISTORY: Routine yearly screening exam. TECHNIQUE: Low-dose [...] CAD DATE: 11/05/2020 7:46 AM DICTATION LOCATION: [facility] HISTORY: Routine yearly screening exam. TECHNIQUE: Low-dose [...] OFFICE CLINIC * ENDOSCOPY, COLON, SCREENING (08/18/2006) Doc Baez MD GI PROCEDURE ORDERABLES [facility] from Last 3 Months or Most Recently Relevant to Health Maintenance Insurance [facility] OPTIONS PPO [phone] Advance Directives For more information, please contact: [phone] * Full Code (Latest Code Status on File) Date Activated Date Inactivated Comments 03/24/2012 8:22 AM 03/24/2012 12:06 PM Care Teams Radio Repairer Domestic Relationship Specialty Start Date End Date Doc Rodriguez MD PCP - General Family Practice 02/16/17
--- OUTSIDE RECORDS SUMMARY | 2025-09-12 14:13 | XMS_ITS | Encounter Summary ---
Author Organization [employer] Address 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
--- OUTSIDE RECORDS SUMMARY | 2025-09-12 14:13 | XMS_ITS | Encounter Summary ---
Author Organization [facility] Address 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 Gender Identity Not on file Sexual Orientation Not on file documented as of this encounter Plan of Treatment Not on file documented as of this encounter Procedures Procedure Name Priority Date/Time Associated Diagnosis Comments MAMMO SCREEN BILAT W OR WO CAD Timed Study 11/08/2007 2:57 PM CIGARETTE ROLLER documented in this encounter Results * MAMMO DIGITAL SCREEN BILAT (11/08/2007 2:57 PM CIGARETTE ROLLER) Anatomical Region Laterality Modality Breast Bilateral Other 11/08/2007 2:57 PM CIGARETTE ROLLER Narrative 11/09/2007 8:42 AM CIGARETTE ROLLER [address], [place] [address] Admit Date: 11/08/2007 MANOLO LAUREN Sex: F Admit Prov: KATELYN PINZON Date: 1955 Primary Care Prov: GARY SANCHEZ [facility] [id number] DOTTIE N: [id number] [facility] Ordering Prov: KATELYN PINZON Accession Number: [id number] Interpretation DIGITAL BILATERAL MAMMOGRAM WITH COMPUTER ASSISTED [...] CCM Procedure Note Yusra Lucio - 11/11/2007 [facility] [address] [place], [place] [address] Admit Date: 11/08/2007 MANOLO LAUREN Sex: F Admit Prov: KATELYN PINZON Date: 1955 Primary Care Prov: [facility] [id number] [facility] [id number] Room: [facility] Ordering Prov: KATELYN PINZON Interpretation DIGITAL BILATERAL MAMMOGRAM WITH COMPUTER ASSISTED DIAGNOSIS FINDINGS There is a moderate amount of residual fibroglandular tissue. Thereis no evidence of mass, architectural distortion or suspicious microcalcifications. No change since 08/18. The films were reviewed with CAD. IMPRESSION Normal bilateral mammogram. No evidence of malignancy. ACR ACCREDITED Assessment BIRADS: 1-Negative Recommendation: Normal interval follow-up Dictated by: YSURA LUCIO Electronically signed by: YUSRA LUCIO 11/09/2007 08:42 Transcribed: 11/09/2007 08:42 CCM us Katelyn Pinzon MD MAMMO ORDERABLES Final Resul t documented in this encounter Visit Diagnoses Diagnosis Other screening mammogram documented in this encounter Care Teams Judge'S Clerk Relationship Specialty Start Date End Date Doc Rodrgiuez MD PCP - General Family Practice 02/16/17 documented as of this encounter
--- OUTSIDE RECORDS SUMMARY | 2025-09-12 14:13 | XMS_ITS | Encounter Summary ---
Author Organization [email or web address] Address [address] [place] [address] Care Team Providers Care Street Supervisor Name Role Phone Doc Rodriguez MD Primary Care Provider [phone] Encounter Details Date Type Department Care Team (Late st Contact Info) Description 02/11/2000 Outpatient Historical [facility] Aditya Vera, DO [address] [place] [address] Social History Tobacco Use Types Packs/Day Years Used Date Smoking Tobacco: Never Assessed Comments Unknown Sex and Gender Information Value Date Recorded Sex Assigned at Not on file Legal Sex Female 5:16 AM BUSINESS LINE CONTROLLER Gender Identity Not on file Sexual Orientation Not on file documented as of this encounter Plan of Treatment Not on file documented as of this encounter Visit Diagnoses Not on filedocumented in this encounter Care Teams Street Supervisor Relationship Specialty Start Date End Date Doc Rodriguez MD PCP - General Family Practice 02/16/17 documented as of this encounter
--- OUTSIDE RECORDS SUMMARY | 2025-09-12 14:13 | XMS_ITS | Encounter Summary ---
Author Organization [facility] Address [address] [place] [address] Care Team Providers Care Frame Coverer Name Role Phone Doc Rodriguez MD Primary Care Provider [phone] Encounter Details Date Type Department Care Team (Latest Contact Info) Description 06/04/2004 Outpatient Historical HIS [facility] Netta Terrell MD [address] [place] [address] SCREENING MAMM-MAILG NEOPL-OTHER (Primary Dx) Social History Tobacco Use Types Packs/Day Years Used Date Smoking Tobacco: Never Assessed Comments Unknown Sex and Gender Information Value Date Recorded Sex Assigned at Not on file Legal Sex Female 5:16 AM SUPERVISOR WOUND Gender Identity Not on file Sexual Orientation Not on file documented as of this encounter Plan of Treatment Not on file documented as of this encounter Visit Diagnoses Diagnosis Other screening mammogram- Primary documented in this encounter Care Teams Frame Coverer Relationship Specialty Start Date End Date Doc Rodriguez MD PCP - General Family Practice 02/16/17 documented as of this encounter
--- OUTSIDE RECORDS SUMMARY | 2025-09-12 14:13 | XMS_ITS | Encounter Summary ---
Author Organization [employer] Address [address] [place] [address] Care Team Providers Care Waiter/Waitress Room Service Name Role Phone Doc Rodriguez MD Primary Care Provider [phone] Encounter Details Date Type Department Care Team (Late st Contact Info) Description 08/22/1999 Outpatient Historical [facility] Aditya Vera, DO [address] [place] [address] Social History Tobacco Use Types Packs/Day Years Used Date Smoking Tobacco: Never Assessed Comments Unknown Sex and Gender Information Value Date Recorded Sex Assigned at Not on file Legal Sex Female 5:16 AM BLOOD COLLECTOR Gender Identity Not on file Sexual Orientation Not on file documented as of this encounter Plan of Treatment Not on file documented as of this encounter Visit Diagnoses Not on filedocumented in this encounter Care Teams Waiter/Waitress Room Service Relationship Specialty Start Date End Date Doc Rodriguez MD PCP - General Family Practice 02/16/17 documented as of this encounter
--- OUTSIDE RECORDS SUMMARY | 2025-09-12 14:13 | XMS_ITS | Encounter Summary ---
Author Organization [facility] Address [address] [place] [address] Care Team Providers Care Copier Field Service Technician Name Role Phone Doc Rodriguez MD Primary Care Provider [phone] Encounter Details Date Type Department Care Team (Latest Contact Info) Description 10/29/2006 Outpatient Historical HIS [facility] Netta Terrell MD [address] [place] [address] Other Screening Mammogram (Primary Dx) Social History Tobacco Use Types Packs/Day Years Used Date Smoking Tobacco: Never Assessed Comments Unknown Sex and Gender Information Value Date Recorded Sex Assigned at Not on file 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
--- OUTSIDE RECORDS SUMMARY | 2025-09-12 14:13 | XMS_ITS | Encounter Summary ---
Author Organization [employer] Address [address] [place] [address] Care Team Providers Care Broadcaster Name Role Phone Doc Rodriguez MD Primary Care Provider [phone] Encounter Details Date Type Department Care Team (Late st Contact Info) Description 08/01/1999 Outpatient Historical [facility] Aditya Vera, DO [address] [place] [address] Social History Tobacco Use Types Packs/Day Years Used Date Smoking Tobacco: Never Assessed Comments Unknown Sex and Gender Information Value Date Recorded Sex Assigned at Not on file Legal Sex Female 5:16 AM CORE MANAGER Gender Identity Not on file Sexual Orientation Not on file documented as of this encounter Plan of Treatment Not on file documented as of this encounter Visit Diagnoses Not on filedocumented in this encounter Care Teams Broadcaster Relationship Specialty Start Date End Date Doc Rodriguez MD PCP - General Family Practice 02/16/17 documented as of this encounter
--- OUTSIDE RECORDS SUMMARY | 2025-09-12 14:13 | XMS_ITS | Encounter Summary ---
Author Organization [employer] Address [address] [place] [address] Care Team Providers Care Package Sorter Name Role Phone Doc Rodriguez MD Primary Care Provider [phone] Encounter Details Date Type Department Care Team (Late st Contact Info) Description 09/10/2000 Outpatient Historical [facility] Aditya Vera, DO [address] [place] [address] Social History Tobacco Use Types Packs/Day Years Used Date Smoking Tobacco: Never Assessed Comments Unknown Sex and Gender Information Value Date Recorded Sex Assigned at Not on file Legal Sex Female 5:16 AM CANE FLUME WATCHMAN Gender Identity Not on file Sexual Orientation Not on file documented as of this encounter Plan of Treatment Not on file documented as of this encounter Visit Diagnoses Not on filedocumented in this encounter Care Teams Package Sorter Relationship Specialty Start Date End Date Doc Rodriguez MD PCP - General Family Practice 02/16/17 documented as of this encounter
--- OUTSIDE RECORDS SUMMARY | 2025-09-12 14:13 | XMS_ITS | Encounter Summary ---
Author Organization [facility] Address [address] [place] [address] Care Team Providers Care Cartography Supervisor Name Role Phone Doc Rodriguez MD Primary Care Provider [phone] Encounter Details Date Type Department Care Team (Late st Contact Info) Description 02/25/1999 Outpatient Historical [facility] Bear Arreola Social History Tobacco Use Types Packs/Day Years Used Date Smoking Tobacco: Never Assessed Comments Unknown Sex and Gender Information Value Date Recorded Sex Assigned at Not on file Legal Sex Female 5:16 AM MANAGED CARE NURSE Gender Identity Not on file Sexual Orientation Not on file documented as of this encounter Plan of Treatment Not on file documented as of this encounter Visit Diagnoses Not on filedocumented in this encounter Care Teams Cartography Supervisor Relationship Specialty Start Date End Date Doc Rodriguez MD PCP - General Family Practice 02/16/17 documented as of this encounter
--- OUTSIDE RECORDS SUMMARY | 2025-09-12 14:13 | XMS_ITS | Encounter Summary ---
Author Organization [employer] Address [address] [place] [address] Care Team Providers Care Slab Depiler Operator Name Role Phone Doc Rodriguez MD Primary Care Provider [phone] Encounter Details Date Type Department Care Team (Late st Contact Info) Description 11/10/2005 Outpatient Historical [facility] Netta Currie MD [address] [place] [address] UTERINE LEIOMYOMA NOS (Primary Dx) Social History Tobacco Use Types Packs/Day Years Used Date Smoking Tobacco: Never Assessed Comments Unknown Sex and Gender Information Value Date Recorded Sex Assigned at Not on file Legal Sex Female 5:16 AM INTERLOCKING PAVEMENT INSTALLER Gender Identity Not on file Sexual Orientation Not on file documented as of this encounter Plan of Treatment Not on file documented as of this encounter Visit Diagnoses Diagnosis Leiomyoma of uterus, unspecified- Primary documented in this encounter Care Teams Slab Depiler Operator Relationship Specialty Start Date End Date Doc Rodriguez MD PCP - General Family Practice 02/16/17 documented as of this encounter
--- OUTSIDE RECORDS SUMMARY | 2025-09-12 14:13 | XMS_ITS | Encounter Summary ---
Author Organization [employer] Address [address] [place] [address] Care Team Providers Care Brick Extruder Operator Name Role Phone Doc Rodriguez MD Primary Care Provider [phone] Encounter Details Date Type Department Care Team (Late st Contact Info) Description 01/03/2003 Outpatient Historical Division of Neurology [address] [address] Jatinder Edwards MD [address] [place] [address] Social History Tobacco Use Types Packs/Day Years Used Date Smoking Tobacco: Never Assessed Comments Unknown Sex and Gender Information Value Date Recorded Sex Assigned at Not on file Legal Sex Female 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
--- OUTSIDE RECORDS SUMMARY | 2025-09-12 14:13 | XMS_ITS | Encounter Summary ---
Author Organization [employer] Address [address] [place] [address] Care Team Providers Care Certified Welding Inspector Name Role Phone Doc Rodriguez MD Primary Care Provider [phone] Encounter Details Date Type Department Care Team (Late st Contact Info) Description 08/01/1999 Outpatient Historical [facility] Aditya Vera, DO [address] [place] [address] Social History Tobacco Use Types Packs/Day Years Used Date Smoking Tobacco: Never Assessed Comments Unknown Sex and Gender Information Value Date Recorded Sex Assigned at Not on file Legal Sex Female 5:16 AM FREELANCE DIGITAL PROJECT MANAGER Gender Identity Not on file Sexual Orientation Not on file documented as of this encounter Plan of Treatment Not on file documented as of this encounter Visit Diagnoses Not on filedocumented in this encounter Care Teams Certified Welding Inspector Relationship Specialty Start Date End Date Doc Rodriguez MD PCP - General Family Practice 02/16/17 documented as of this encounter
--- OUTSIDE RECORDS SUMMARY | 2025-09-12 14:13 | XMS_ITS | Clinical Summary ---
Author Organization [facility] Address [address] [place] [address] Phone Care Team Providers Care Employment Law Specialist Name Role Phone Julia Solano MD Primary Care Provider [phone] Allergies Active Allergy Reactions Criticality Noted Date [...] Comments Blood Pressure 100/70 11/04/2023 8:08 AM SEWING MACHINE ATTACHMENT TESTER Pulse 81 11/04/2023 8:08 AM SEWING MACHINE ATTACHMENT TESTER Temperature 36.8 C (98.3 F) 11/04/2023 8:08 AM SEWING MACHINE ATTACHMENT TESTER Respiratory Rate 20 11/04/2023 8:08 AM SEWING MACHINE ATTACHMENT TESTER Oxygen Saturation 97% 11/04/2023 8:08 AM SEWING MACHINE ATTACHMENT TESTER Inhaled Oxygen Concentration - - Weight 133.4 kg (294 lb) 11/04/2023 8:08 AM SEWING MACHINE ATTACHMENT TESTER Height 170.2 cm (5' 7) 11/04/2023 8:08 AM SEWING MACHINE ATTACHMENT TESTER Body Mass Index 46.05 11/04/2023 8:08 AM SEWING MACHINE ATTACHMENT TESTER Plan of Treatment Health Maintenance Due Date [...] (#1) 2025 , 08/01/2021, 07/03/2020 Insurance MEDICARE [facility] Care Teams Employment Law Specialist Relationship Specialty Start Date End Date Julia Solano MD PCP - General Family Medicine 10/31/23
--- OUTSIDE RECORDS SUMMARY | 2025-09-12 14:13 | XMS_ITS | Encounter Summary ---
Author Organization [facility] Address [address] [place] [address] Care Team Providers Care Patient Case Manager Name Role Phone Doc Rodriguez MD Primary Care Provider [phone] Encounter Details Date Type Department Care Team (Late st Contact Info) Description 02/02/2009 Outpatient Historical [facility] [place] [address] [place] [address] Netta Pinzon MD [address] [place] [phone] Other Screening Mammogram Social History Tobacco Use Types Packs/Day Years Used Date Smoking Tobacco: Never Assessed Comments Unknown Sex and Gender Information Value Date Recorded Sex Assigned at Not on file Legal Sex Female 5:16 AM GLASS TECHNICIAN/INSTALLER Gender Identity Not on file Sexual Orientation [...] AM CDT Narrative 02/06/2009 6:45 AM CDT [address] [address] Admit Date: 02/02/2009 MANOLO LAUREN Sex: F Admit Prov: NETTA PINZON Date: 1955 [id number] DOTTIE N: [id number] [facility] Ordering Prov: NETTA PINZON [place] Accession Number: [id number] Interpretation BILATERAL DIGITAL MAMMOGRAM WITH COMPUTER-ASSISTED DIAGNOSIS [...] Procedure Note Mahi Becerra MD - 02/06/[address] [address] Admit Date: 02/02/2009 MANOLO LAUREN Sex: F Admit Prov: NETTA PINZON Date: 1955 [id number] DOTTIE N: [id number] Room: [facility] Ordering Prov: DEANDRA PINZONTERRENCE Gramajo Interpretation BILATERAL DIGITAL MAMMOGRAM WITH COMPUTER-ASSISTED DIAGNOSIS [...] mammogram documented in this encounter Care Teams Patient Case Manager Relationship Specialty Start Date End Date Doc Rodriguez MD PCP - General Family Practice 02/16/17 documented as of this encounter
--- OUTSIDE RECORDS SUMMARY | 2025-09-12 14:13 | XMS_ITS | Encounter Summary ---
Author Organization [facility] Address [address] [place] [address] Care Team Providers Care Education Site Manager Name Role Phone Doc Rodriguez MD Primary Care Provider [phone] Encounter Details Date Type Department Care Team (Late st Contact Info) Description 01/24/2000 Outpatient Historical HIS [facility] Aditya Vera, DO [address] [place] [address] Social History Tobacco Use Types Packs/Day Years Used Date Smoking Tobacco: Never Assessed Comments Unknown Sex and Gender Information Value Date Recorded Sex Assigned at Not on file Legal Sex Female 5:16 AM ENRICHMENT TEACHER Gender Identity Not on file Sexual Orientation Not on file documented as of this encounter Plan of Treatment Not on file documented as of this encounter Visit Diagnoses Not on filedocumented in this encounter Care Teams Education Site Manager Relationship Specialty Start Date End Date Doc Rodriguez MD PCP - General Family Practice 02/16/17 documented as of this encounter
== END 2025-09-12 13:56 | disposition home or self-care (01) ==
LOC: ANHFOHIMG 13:57
PROVIDERS: PCP Student in an Organized Health Care Education/Training Program; Visit Provider Student in an Organized Health Care Education/Training Program
DX: Z12.31 Encounter for screening mammogram for malignant neoplasm of breast (principal)
CPT/HCPCS: 77063; 77067